=== PATIENT | male | born 1960 | race Caucasian/White ===

== ENCOUNTER → 2019-01-21 | Outpatient (CLI) | payer BC ==
[~2019-01-21] MED LIST: PER PO; TOBOO OS; rectal suppository
--- NOTE | 2019-01-21 16:37 | RADIOLOGY IMAGING REPORT ---
FACILITY: [facility] PATIENT NAME: Vaughn Guajardo : 1960 MR: [id number] V: [id number] EXAM DATE: ORDERING PHYSICIAN: SHAE PANDEY TECHNOLOGIST: Location: [facility] - [place] Patient: Vaughn Guajardo : 1960 Visit/Account:[id number] Date of Sevice: 01/21/2019 Exam type: US GROIN History: Right groin pain Comparison: Right groin pain since last week, history of two prior hernia surgeries. Findings: Multiple images of the superficial right lower quadrant were submitted three incidental fatty replace d lymph nodes are identified. There is no demonstration of a right inguinal hernia with images perfo rmed both with and without a Valsalva maneuver IMPRESSION: 1. Incidental fatty replaced lymph nodes the right inguinal region No demonstration of the right inguinal hernia Report Dictated By: Esther Green MD at 01/21/2019 4:31 PM Report E-Signed By: Esther Green MD at 01/21/2019 4:33 PM WSN:[email or web address]
== END ==
LOC: RAD 14:48
PROVIDERS: ATTEND Emergency Medicine
DX: R10.30 Lower abdominal pain, unspecified (principal)
CPT/HCPCS: 76705